=== PATIENT | female | born 1990 | race Caucasian/White ===

== ENCOUNTER 2025-01-27 10:40 | Inpatient (IN) ==
[2025-01-27 16:45] LABS: Hematocrit (blood only) 34.8 % (37.0-47.0); Hemoglobin 12.8 g/dl (12.0-16.0); Mean Corpuscular Hemoglobin 33.2 pg (25.0-34.0); Mean Corpuscular Hgb Conc 36.8 g/dL (32.0-36.0); Mean Corpuscular Volume 90.4 fL (80.0-100.0); Mean Platelet Volume 11.3 fL (9.4-12.4); Platelet Count 144 K/uL (130-400); RDW Coefficient of Variation 13.5 % (11.5-14.5); RDW Standard Deviation 44.1 fL (36.4-46.3); Red Blood Count 3.85 M/uL (4.20-5.40); White Blood Count 7.72 K/ul (4.8-10.8)
--- NOTE | 2025-01-27 16:52 | History & Physical Report ---
Date of Service January 27, 2025 Assessment & Plan (1) Gestational [-induced] hypertension without significant proteinu shaheed, complicating childbirth: Plan: 34-year-old -0-1-0 at 3037 weeks and 6 days of gestation who was scheduled for induction of labor at term for gestational hypertension, Vital signs stable afebrile, No symptoms, No medical problems, GBS negative, heart rate reassuring, Cervix unfavorable, discussed the induction process cervical ripening with Cervidil what to expect, Cervidil is placed in posterior fornix, Continue to monitor closely, All questions were answered. Admission and Anticipated Discharge Date Admission Date: January 27, 2025 History of Present Illness Primary Care Provider: NO PCP patient is a 34-year-old -0-1-0 at 37 weeks and 6 days of gestation who was scheduled for Induction a term for gestational hypertension. Her blood pr essure in the office was elevated x 2, her blood work was within lumbar normal limits. She was scheduled for today for induction of labor. Patient has no complaints. She denies contractions, leakage of fluid, vaginal bleeding, headaches, change in her vision, nausea vomiting, epigastric or right upper quadrant pain, chest pain, shortness of breath, fever chills. she reports good movements. Her has been uncomplicated, GBS negative. Allergies Allergy/AdvReac Type Severity Reaction Status Date / Time Penicillins Allergy Mild Unverified 10/14/09 03:44 Sulfa (Sulfonamide Allergy Mild Unverified 10/14/09 03:44 Antibiotics) sulfamethoxazole Allergy Mild Unverified 10/14/09 03:44 trimethoprim Allergy Mild Unverified 10/14/09 03:44 cefprozil Allergy Unknown UNKNOWN Unverified 01/05/13 12:36 nickel Allergy rash Verified 01/05/13 12:24 Home Medications Medication Instructions Recorded Confirmed Type Vitamin 1 cap PO DAILY 01/23/25 01/27/25 History Patient History Surgical History H/O adenoidectomy Hx of tonsillectomy Social History (Updated 01/27/25 @ 13:56 by Charlotte Villagran RN) Smoking Status: Never smoker Second Hand Exposure: No; Do You Dip or Chew Tobacco: No; Hx Alcohol Use: No Hx Substance Use: No Preferred Language: Armenian Communication Ability: Effective 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 Beliefs That Will Affect Care: None marital status: Single marital status details: keegan Diallo Current Living Situation: Significant Other Current Living Situation Comment: lives with Yoel, dog and cat (does not scoop litter) current occupational status: employed current occupation: [employer] - patient access Other Information That Helps Us Care for You: No Feels Safe at Home: Yes Safety Concerns: Feels Safe At This Time Diet: regular Assistive Devices: Glasses 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 History no history of STDs, no history of genital herpes, chlamydia, gonorrhea Review of Systems as per Subjective / HPI Physical Exam Constitutional: WD/WN, vitals as above well developed, + thin and comfortable Gastrointestinal (Abdomen): normal bowel sounds, soft, nontender, no hepatosplenomegaly ( gravid, Margarito 6-7 pounds) Genitourinary: normal external appearance OB Exam Abdomen: + vertex ( confirmed with bedside ultrasound) Manual OB Exam: + cervical dilation (0), + cervical effacement (0, firm) and + station -2 OB Exam Monitor Tracing: + external uterine monitor used and + category I Cervidil is placed in posterior fornix without faculty Results & Data Vital Signs (Past 12 Hours) Vital Signs Temp Pulse Resp BP 01/27/25 16:42 89 143/93 H 01/27/25 15:15 91 H 118/86 01/27/25 14:09 98 H 121/95 01/27/25 13:57 36.8 C 18 01/27/25 13:53 85 126/86 Laboratory Results Lab Results 01/27/25 Range/Units 16:24 WBC 7.72 (4.8-10.8) K/ul RBC 3.85 L (4.20-5.40) M/uL Hgb 12.8 (12.0-16.0) g/dl Hct 34.8 L (37.0-47.0) % MCV 90.4 (80.0-100.0) fL MCH 33.2 (25.0-34.0) pg MCHC 36.8 H (32.0-36.0) g/dL RDW Std Deviation 44.1 (36.4-46.3) fL RDW Coeff of Ailyn 13.5 (11.5-14.5) % Plt Count 144 (130-400) K/uL MPV 11.3 (9.4-12.4) fL
[2025-01-27 17:04] LABS: Albumin Globulin Ratio 1.2 (0.9-2); Albumin Level 3.3 gm/dl (3.4-5.0); BUN Creatinine Ratio 11.4 (10-20); Bilirubin,Total 0.3 mg/dl (0.2-1.0); Calcium 8.8 mg/dl (8.6-10.3); Creatinine Clr Calc Pharmacy 91.3 ml/min; Globulin 2.8 gm/dl (2.5-4.0); Potassium 3.8 mmol/L (3.5-5.1); Total Protein 6.1 gm/dl (6.0-8.3)
[2025-01-27 17:54] LABS: Protein Creatinine Ratio Urine 0.2 (0-0.2); Total Protein Urine Random 11.5 mg/dl (0-11.9)
--- NOTE | 2025-01-28 00:39 | Obstetrical Progress Note ---
Date of Service January 28, 2025 Assessment & Plan Admission and Anticipated Discharge Date Admission Date: January 27, 2025 Subjective Attempted to see the patient Sleeping VSS AFEBRILE FHR had been categ I Irregular ctxs, patient does not feel them, she has not asked for any pain medication Plan to remove Cervidil and continue with cervical ripening Results & Data Vital Signs (Past 12 Hours) Vital Signs Temp Pulse Resp BP 01/27/25 22:31 80 119/85 01/27/25 22:30 18 01/27/25 22:30 36.9 C 18 01/27/25 19:07 36.6 C 18 01/27/25 19:05 82 131/89 01/27/25 19:00 18 01/27/25 19:00 18 01/27/25 18:30 18 01/27/25 18:30 18 01/27/25 18:00 18 01/27/25 18:00 18 01/27/25 17:44 78 125/86 01/27/25 17:30 18 01/27/25 17:30 18 01/27/25 17:12 81 123/89 01/27/25 17:00 18 01/27/25 17:00 18 01/27/25 16:42 89 143/93 H 01/27/25 16:30 18 01/27/25 16:30 18 01/27/25 16:00 18 01/27/25 16:00 18 01/27/25 15:30 18 01/27/25 15:30 18 01/27/25 15:15 91 H 118/86 01/27/25 15:00 18 01/27/25 15:00 18 01/27/25 14:30 18 01/27/25 14:30 18 01/27/25 14:09 98 H 121/95 01/27/25 14:00 18 01/27/25 14:00 18 01/27/25 13:57 36.8 C 18 01/27/25 13:53 85 126/86
--- NOTE | 2025-01-28 06:05 | Obstetrical Progress Note ---
Date of Service January 28, 2025 Assessment & Plan Admission and Anticipated Discharge Date Admission Date: January 27, 2025 Subjective patient is walking in the hallways with her partner, she started to feel c ontractions after the Cervidil was removed, they are every 2 to 3 minutes, they are painful but she does not need pain medication, walking is helping for her pain. She denies leakage of fluid or vaginal bleeding. She reports good movements. heart rate had been category 1, last toco shows contractions every 2 to 4 minutes, Continue to monitor closely, Results & Data Vital Signs (Past 12 Hours) Vital Signs Temp Pulse Resp BP 01/28/25 03:03 63 138/93 01/28/25 03:02 16 01/28/25 03:02 36.5 C 16 01/27/25 22:31 80 119/85 01/27/25 22:30 18 01/27/25 22:30 36.9 C 18 01/27/25 19:07 36.6 C 18 01/27/25 19:05 82 131/89 01/27/25 19:00 18 01/27/25 19:00 18 01/27/25 18:30 18 01/27/25 18:30 18
--- NOTE | 2025-01-29 09:32 | Obstetrical Progress Note ---
Date of Service January 29, 2025 Assessment & Plan Admission and Anticipated Discharge Date Admission Date: January 27, 2025 Subjective Patient was admitted for induction 4 PM on 01/27/2025. This is for hypertension patient is 38 weeks gestation. Patient initially received the Cervidil which was left then placed for 12 hours. Cervidil was then removed then we switched to p.o. Cytotec 50 mcg. It took a long time to get the patient into regular pattern of contractions. 5 doses of p.o. Cytotec every 4 hours. After the fifth dose she was rubi regularly she was feeling the contractions that were more intense. We now switched to IV Pitocin. Results & Data Vital Signs (Past 12 Hours) Vital Signs Temp Pulse Resp BP 01/29/25 08:34 75 135/85 01/29/25 07:05 36.7 C 20 01/29/25 07:05 68 128/85 01/29/25 03:24 36.7 C 83 16 130/94 01/28/25 23:26 36.7 C 69 18 135/88
--- NOTE | 2025-01-29 18:51 | Labor Progress Brief Note ---
Date of Service January 29, 2025 Subjective Reason For Note: Routine Evaluation contractions noted. Assessment & Plan Admission and Anticipated Discharge Date Admission Date: January 27, 2025 Physical Exam Genitourinary: Manual OB Exam: + cervical dilation fingertip, + cervical effacement 50% and + station high OB Exam Monitor Tracing: + external FHT monitor used, + external uterine monitor used, + category I and + normal FHT variability Will stop Oxytocin. Regular diet. Plan further cervical ripening tonight after rest. Results & Data Vital Signs (Past 12 Hours) Vital Signs Temp Pulse Resp BP 01/29/25 18:00 65 138/93 01/29/25 17:11 68 18 127/87 01/29/25 15:59 36.7 C 67 20 137/92 01/29/25 14:29 36.5 C 72 18 136/94 01/29/25 13:39 85 18 128/90 01/29/25 12:29 71 20 142/95 H 01/29/25 10:36 87 20 124/84 01/29/25 10:31 20 01/29/25 10:31 36.7 C 20 01/29/25 09:34 83 20 134/88 01/29/25 08:34 75 135/85 01/29/25 07:05 36.7 C 20 01/29/25 07:05 68 128/85
--- NOTE | 2025-01-29 23:20 | Labor Progress Brief Note ---
Date of Service January 29, 2025 Assessment & Plan Admission and Anticipated Discharge Date Admission Date: January 27, 2025 Physical Exam Genitourinary: Manual OB Exam: + cervical dilation fingertip, + cervical effacement 50% and + station high OB Exam Monitor Tracing: + external FHT monitor used, + external uterine monitor used, + category I and + normal FHT variability Cervidil 10 mg placed for continued cervical ripening Results & Data Vital Signs (Past 12 Hours) Vital Signs Temp Pulse Resp BP 01/29/25 23:11 84 110/80 01/29/25 22:55 16 01/29/25 22:55 36.9 C 16 01/29/25 18:59 16 01/29/25 18:59 36.8 C 16 01/29/25 18:00 65 138/93 01/29/25 17:11 68 18 127/87 01/29/25 15:59 36.7 C 67 20 137/92 01/29/25 14:29 36.5 C 72 18 136/94 01/29/25 13:39 85 18 128/90 01/29/25 12:29 71 20 142/95 H
--- NOTE | 2025-01-30 15:49 | Anesthesiology Consultation ---
Date of Service January 30, 2025 Assessment & Plan (1) Encounter for pre-operative examination: Chart Review Chart Review: Acceptable Risk for Labor Epidural History Height/Weight Height: 5 ft 2 in Weight: 57.153 kg Allergies Allergy/AdvReac Type Severity Reaction Status Date / Time Penicillins Allergy Mild Unverified 10/14/09 03:44 Sulfa (Sulfonamide Allergy Mild Unverified 10/14/09 03:44 Antibiotics) sulfamethoxazole Allergy Mild Unverified 10/14/09 03:44 trimethoprim Allergy Mild Unverified 10/14/09 03:44 cefprozil Allergy Unknown UNKNOWN Unverified 01/05/13 12:36 nickel Allergy rash Verified 01/05/13 12:24 Medications Home Medications Medication Instructions Recorded Confirmed Last Taken Vitamin 1 cap PO DAILY 01/23/25 01/27/25 01/26/25 Active Medications Generic Name Dose Route Start Last Admin Trade Name Freq PRN Reason Stop Dose Admin Lactated Ringer's 1,000 mls @ 125 mls/hr 01/29/25 18:30 01/30/25 15:33 Lr IV 02/01/25 18:29 999 mls/hr .Q8H PARDEEP Infusion Oxytocin 30 units in 500 mls @ 6 mls/hr 01/30/25 08:23 01/30/25 13:30 Pitocin 30 Units/Nss IV 02/01/25 08:22 0.36 units/hr .Q24H PRN 6 mls/hr Labor Induction/Augmentation Titration Protocol 0.36 UNITS/HR Misoprostol 50 mcg 01/28/25 09:30 01/29/25 23:01 Misoprostol 50 Mcg Tab PO 02/27/25 09:29 Not Given Q4H PARDEEP Past Medical History Medical History (Updated 01/30/25 @ 15:49 by Jeff Noriega MD) Gestational [-induced] hypertension without significant proteinuria, complicating childbirth Past Surgical History Surgical History H/O adenoidectomy Hx of tonsillectomy Social History Smoking Status: Never smoker Do You Dip or Chew Tobacco: No Hx Alcohol Use: No Hx Substance Use: No substance use type: does not use Physical Exam Vital Signs Last Vital Signs Temp 36.4 C L 01/30/25 14:53 Pulse 80 01/30/25 14:53 Resp 22 01/30/25 14:53 BP 125/87 01/30/25 14:53 Testing Laboratory Results 01/27/25 16:24 01/27/25 16:24
--- NOTE | 2025-01-30 22:27 | Delivery Summary ---
Vaginal Delivery Summary Date of Service January 30, 2025 Vaginal Delivery Summary Patient was brought in for induction due to elevated blood pressures. Patient delivered at 38 weeks 2 days gestation. Induction was difficult due to unripe cervix. Initial induction was started with the Cervidil tape which was left in for 12 hours. Following this she was given p.o. Cytotec 50 mcg 5 doses every 4 hours. She was then augmented with IV Pitocin. This failed to ripen up the cervix. Pitocin was then shut off and she was given a second Cervidil tape. Cervix started to ripen up after this tape was removed after being in for 12 hours. She was then augmented with IV Pitocin. She received epidural for pain control. She went to full dilatation. Pushed out a live infant in under 1 hour via direct occiput anterior position. Second-degree laceration was repaired anatomically with 2-0 Vicryl. Vaginal mucosa was approximated out and to beyond the hymenal ring with a running 2-0 Vicryl. A deep suture of 2-0 Vicryl was used approximate the bulbocavernosus muscle. 2 interrupted sutures were used to approximate the perineal body. A separate suture was used proximate the rectal sphincter capsule. And a running subcuticular suture was used to approximate perineal skin edges. Calculated blood loss was 35 mL. She was given rectal Cytotec along with the Pitocin. Patient tolerated the delivery well.
[2025-01-31 06:52] LABS: Hemoglobin 11.3 g/dl (12.0-16.0); Mean Corpuscular Hemoglobin 33.1 pg (25.0-34.0); Mean Corpuscular Hgb Conc 35.3 g/dL (32.0-36.0); Mean Corpuscular Volume 93.8 fL (80.0-100.0); Mean Platelet Volume 11.1 fL (9.4-12.4); Platelet Count 144 K/uL (130-400); RDW Coefficient of Variation 13.5 % (11.5-14.5); Red Blood Count 3.41 M/uL (4.20-5.40); White Blood Count 18.87 K/ul (4.8-10.8)
--- NOTE | 2025-01-31 10:08 | Obstetrical Progress Note ---
Date of Service January 31, 2025 Assessment & Plan Admission and Anticipated Discharge Date Admission Date: January 27, 2025 Subjective abdomen soft and no tender no calf tenderness ambulating well vaginal bleeding scant hgb 11.3 on labetalol 100 mg bid Results & Data Vital Signs (Past 12 Hours) Vital Signs Temp Pulse Pulse Pulse Resp BP BP 01/31/25 08:15 36.8 C 79 18 114/76 01/31/25 03:00 37.1 C 88 16 96/70 L 01/31/25 00:30 37.4 C 98 H 16 01/31/25 00:08 105 H 105/75 01/30/25 23:55 36.8 C 20 01/30/25 23:55 115 H 116/82 01/30/25 23:26 102 H 148/75 H 01/30/25 23:25 20 01/30/25 23:10 75 160/92 H 01/30/25 22:57 71 170/92 H 01/30/25 22:55 18 01/30/25 22:55 84 175/81 H 01/30/25 22:40 18 01/30/25 22:40 77 167/81 H 01/30/25 22:29 95 H 190/97 H 01/30/25 22:25 18 01/30/25 22:10 18 BP Pulse Ox O2 Del Method 01/31/25 08:15 Room Air 01/31/25 03:00 98 Room Air 01/31/25 00:30 116/83 98 Room Air 01/31/25 00:08 01/30/25 23:55 01/30/25 23:55 01/30/25 23:26 01/30/25 23:25 01/30/25 23:10 01/30/25 22:57 01/30/25 22:55 01/30/25 22:55 01/30/25 22:40 01/30/25 22:40 01/30/25 22:29 01/30/25 22:25 01/30/25 22:10
--- NOTE | 2025-01-31 10:56 | Anesthesia Procedure Note ---
Date of Service January 31, 2025 Anesthesia Post Epidural Note Vital Signs Vital Signs: Temp Pulse Resp BP Pulse Ox O2 Del Method 36.8 C 79 18 114/76 98 Room Air 01/31/25 08:15 01/31/25 08:15 01/31/25 08:15 01/31/25 08:15 01/31/25 03:00 01/31/25 08:15 Pain Intensity Back: Pain Intensity: 3 Notes Mental Status: alert / awake / arousable and participated in evaluation Nausea / Vomiting: adequately controlled Pain: adequately controlled Airway Patency, RR, SpO2: stable & adequate BP & HR: stable & adequate Hydration State: stable & adequate Neuraxial Anesthesia: was administered and sensory block is resolving Anesthetic Complications: no major complications apparent Epidural: Removed without complications and With tip intact
[2025-01-31 21:18] VITALS: RESP 16
[2025-02-01 06:47] LABS: Hematocrit (blood only) 26.6 % (37.0-47.0); Hemoglobin 9.4 g/dl (12.0-16.0)
[2025-02-01 07:04] VITALS: TEMP 98.1; O2SAT 100
[2025-02-01 08:47] VITALS: PULSE 98
--- NOTE | 2025-02-01 09:34 | Obstetrical Progress Note ---
Date of Service February 01, 2025 Assessment & Plan Admission and Anticipated Discharge Date Admission Date: January 27, 2025 Subjective Patient is seen and examined. She feels well, no complaints. Desires d/c sooner than later. Ambulating without dizziness Voiding without difficulty Tolerating regular diet with out N&V Bleeding is minimal No PARNELL/ Changes in vision/ fever/ chills/ CP/ SOB/ N&V/ Leg pain Breast feeding without problems Vital Signs Temp Pulse Pulse Resp BP BP Pulse Ox 02/01/25 08:46 36.7 C 98 H 80 16 134/80 125/86 100 02/01/25 07:03 36.7 C 80 16 134/80 100 02/01/25 00:30 36.5 C 79 16 125/86 01/31/25 21:00 36.6 C 76 16 130/87 01/31/25 16:10 36.5 C 73 18 133/86 98 01/31/25 13:10 79 16 129/88 O2 Del Method 02/01/25 08:46 02/01/25 07:03 Room Air 02/01/25 00:30 Room Air 01/31/25 21:00 Room Air 01/31/25 16:10 Room Air 01/31/25 13:10 Room Air Intake and Output 01/31/25 02/01/25 02/01/25 22:59 06:59 14:59 Other: Weight 57.153 kg Patient Weight 02/02/25 06:59 Weight 57.153 kg Lab Results 01/27/25 01/27/25 01/31/25 Range/Units 14:30 16:24 06:30 WBC 7.72 18.87 H (4.8-10.8) K/ul RBC 3.85 L 3.41 L (4.20-5.40) M/uL Hgb 12.8 11.3 L (12.0-16.0) g/dl Hct 34.8 L 32.0 L (37.0-47.0) % MCV 90.4 93.8 (80.0-100.0) fL MCH 33.2 33.1 (25.0-34.0) pg MCHC 36.8 H 35.3 (32.0-36.0) g/dL RDW Std Deviation 44.1 46.0 (36.4-46.3) fL RDW Coeff of Ailyn 13.5 13.5 (11.5-14.5) % Plt Count 144 144 (130-400) K/uL MPV 11.3 11.1 (9.4-12.4) fL Sodium 135 L (136-145) mmol/L Potassium 3.8 (3.5-5.1) mmol/L Chloride 108 H (98-107) mmol/L Carbon Dioxide 19 L (21-32) mmol/L Anion Gap 8 (3-11) BUN 8 (6-23) mg/dl Creatinine 0.70 (0.6-1.2) mg/dl Est Cr Clr Drug Dosing 91.3 ml/min eGFR 117.77 BUN/Creatinine Ratio 11.4 (10-20) Glucose 92 (70-99(Fasting)) mg/dl Calcium 8.8 (8.6-10.3) mg/dl Total Bilirubin 0.3 (0.2-1.0) mg/dl AST 18 (13-39) U/L ALT 11 (7-52) U/L Alkaline Phosphatase 192 H (34-104) U/L Total Protein 6.1 (6.0-8.3) gm/dl Albumin 3.3 L (3.4-5.0) gm/dl Globulin 2.8 (2.5-4.0) gm/dl Albumin/Globulin Ratio 1.2 (0.9-2) Ur Random Creatinine 49.0 mg/dl U Random Total Protein 11.5 (0-11.9) mg/dl Protein/Creatinin Ratio 0.2 (0-0.2) Treponema pallidum Ab Negative (Negative) 02/01/25 Range/Units 06:25 WBC (4.8-10.8) K/ul RBC (4.20-5.40) M/uL Hgb 9.4 L (12.0-16.0) g/dl Hct 26.6 L (37.0-47.0) % MCV (80.0-100.0) fL MCH (25.0-34.0) pg MCHC (32.0-36.0) g/dL RDW Std Deviation (36.4-46.3) fL RDW Coeff of Ailyn (11.5-14.5) % Plt Count (130-400) K/uL MPV (9.4-12.4) fL Sodium (136-145) mmol/L Potassium (3.5-5.1) mmol/L Chloride (98-107) mmol/L Carbon Dioxide (21-32) mmol/L Anion Gap (3-11) BUN (6-23) mg/dl Creatinine (0.6-1.2) mg/dl Est Cr Clr Drug Dosing ml/min eGFR BUN/Creatinine Ratio (10-20) Glucose (70-99(Fasting)) mg/dl Calcium (8.6-10.3) mg/dl Total Bilirubin (0.2-1.0) mg/dl AST (13-39) U/L ALT (7-52) U/L Alkaline Phosphatase (34-104) U/L Total Protein (6.0-8.3) gm/dl Albumin (3.4-5.0) gm/dl Globulin (2.5-4.0) gm/dl Albumin/Globulin Ratio (0.9-2) Ur Random Creatinine mg/dl U Random Total Protein (0-11.9) mg/dl Protein/Creatinin Ratio (0-0.2) Treponema pallidum Ab (Negative) PE: General: Alert, orientedx3, NAD Abd: soft, NT, fundus firm, below Umbilicus Perineum intact, Lochia rubra minimal Ext; NT, no edema AP: 34 yo s/p , ppd# 2, s/p IOL for GHT VSS Afebrile doing well On labetalol, BP stable Continue routine care All questions were answered D/C home , f/u in office tomorrow for BP check Results & Data Vital Signs (Past 12 Hours) Vital Signs Temp Pulse Pulse Resp BP BP Pulse Ox 02/01/25 08:46 36.7 C 98 H 80 16 134/80 125/86 100 02/01/25 07:03 36.7 C 80 16 134/80 100 02/01/25 00:30 36.5 C 79 16 125/86 O2 Del Method 02/01/25 08:46 02/01/25 07:03 Room Air 02/01/25 00:30 Room Air
[2025-02-01 09:35] LABS: Basophils # (auto) 0.02 K/uL (0.00-0.20); Basophils % (auto) 0.1 %; Eosinophils # (auto) 0.08 K/uL (0.00-0.50); Eosinophils % (auto) 0.6 %; Hematocrit (blood only) 26.9 % (37.0-47.0); Hemoglobin 9.4 g/dl (12.0-16.0); Immature Granulocytes # (auto) 0.09 K/uL (0.01-0.20); Immature Granulocytes % (auto) 0.6 %; Lymphocytes # (auto) 1.72 K/uL (1.20-3.40); Lymphocytes % (auto) 12.1 %; Mean Corpuscular Hemoglobin 33.1 pg (25.0-34.0); Mean Corpuscular Hgb Conc 34.9 g/dL (32.0-36.0); Mean Corpuscular Volume 94.7 fL (80.0-100.0); Mean Platelet Volume 11.6 fL (9.4-12.4); Monocytes # (auto) 0.85 K/uL (0.11-0.59); Neutrophils # (auto) 11.41 K/uL (1.40-6.50); Neutrophils % (auto) 80.6 %; Platelet Count 132 K/uL (130-400); RDW Coefficient of Variation 13.8 % (11.5-14.5); RDW Standard Deviation 46.9 fL (36.4-46.3); Red Blood Count 2.84 M/uL (4.20-5.40); White Blood Count 14.17 K/ul (4.8-10.8)
[2025-02-01 13:00] VITALS: BP 129/86
== END 2025-02-01 11:30 | disposition home or self-care (01) ==
LOC: 4S1 13:41 → 4E2 01-31 00:46